=== PATIENT | male | born 1985 | race Caucasian/White ===

== ENCOUNTER 2018-01-05 11:00 | Emergency (ER) | payer SELFPAY, OTHER, MEDICAID ==
[2018-01-05] MEDS: KETOROLAC 60 MG INJ IM (11:55)
== END 2018-01-05 12:33 | disposition home or self-care (01) ==
LOC: FTE 11:00
DX: L05.01 Pilonidal cyst with abscess (principal)
CPT/HCPCS: 96372; 99284-25